=== PATIENT | female | born 1995 | race Caucasian/White ===

== ENCOUNTER → 2017-07-01 | Outpatient (CLI) | payer OTHER ==
--- NOTE | 2017-07-01 12:10 | USB ---
Reason for exam: clinical finding. Indicated problem(s): palpable abnormality in both breasts. Physical Findings: Nurse Summary: all soft, nodular, movable, prominant bilateral nodularity, most prominant 11 o'clock (nurse ts). US Breast BILAT Right breast ultrasound includes all four quadrants, the retroareolar region and axilla. Finding demonstrates a 1.1 x 0.6 x 0.4cm oval, hypoechoic lesion at 10:30 and a 1.6 x 1.2 x 1.0cm oval, hypoechoic lesion at 11 o'clock. Left breast ultrasound includes all four quadrants, the retroareolar region and axilla. Finding demonstrates no cystic or solid lesion seen. These results were verbally communicated with the patient and result sheet given to the patient on 07/01/17. ASSESSMENT: Suspicious, BI-RAD 4 RECOMMENDATION: Ultrasound core biopsy of the right breast. Called with mammographic findings and has scheduled an appointment for the patient for 07/16/17 at 9:[address] Deal. Biopsy scheduled for 07/11/17 at 8:00. PRELIMINARY REPORT CALLED AND FAXED TO DR. DEAL ON 07/01/17 /TP.
== END | disposition home or self-care (01) ==
LOC: RADUSWWP 10:09
PROVIDERS: ATTEND Surgery
DX: R92.8 Other abnormal and inconclusive findings on diagnostic imaging of breast (principal)

== ENCOUNTER 2017-07-11 07:04 | Day surgery (SDC) | payer OTHER ==
[2017-07-11 07:33] VITALS: TEMP 97; BMI 25.7
--- NOTE | 2017-07-11 09:13 | USB ---
EXAMINATION TYPE: US biopsy breast VAD RT DATE OF EXAM: 07/11/2017 CLINICAL HISTORY: 21 year-old female with palpable abnormality right breast. TECHNIQUE: Ultrasound guided core biopsy of the right breast. COMPARISON: 07/01/2017 FINDINGS: Initial scanning redemonstrated the deep 1.4 x 1.0 x 1.6 cm lobulated mass at the 11:00 position. The second questioned area measuring 1.1 x 0.3 x 0.8 cm just adjacent at 10:30 shows contiguity with additional areas of fibroglandular tissue during real- time scanning and does not have a suspicious appearance. The 11:00 lesion is targeted for biopsy. The procedure of ultrasound guided core biopsy was explained to the patient. Benefits, alternatives, and risks were discussed. An informed consent was then obtained. The patient was placed in supine positioning for imaging and for the procedure. The overlying skin was prepped and draped in usual sterile fashion. Lidocaine was used as anesthetic into the skin and subcutaneous tissue up to area of concern in the right breast. Under ultrasound guidance, a 13-gauge vacuum-assisted mammotome Elite biopsy gun device was used to obtain 5 core samples. Following this, a ribbon clip was left in lesion. The patient tolerated the procedure well without any immediate complication. The patient was kept in the radiology department for short stay after the procedure and then discharged home in stable condition. Post procedure mammogram was not performed given the patient's age. IMPRESSION: 1. Successful, uncomplicated ultrasound guided core biopsy of palpable, deep 11: 00 right breast lesion. Full pathology results to follow. 2. During real-time scanning, the adjacent 10:30 lesion was contiguous with additional fibroglandular tissue and was not suspicious. Pathology Results: Benign BREAST, RIGHT, ELEVEN O'CLOCK, CORE BIOPSY: FIBROADENOMA. BACKGROUND FIBROCYSTIC CHANGES INCLUDING FIBROSIS AND SMALL CYSTS. Recommendation Follow up ultrasound of the right breast in 6 months. DANIELD
[2017-07-11 09:26] VITALS: BP 101/67; PULSE 78; RESP 16
== END 2017-07-11 09:00 | disposition home or self-care (01) ==
LOC: RADUSWWP 07:04
PROVIDERS: ATTEND Surgery
DX: D24.1 Benign neoplasm of right breast (principal); N60.11 Diffuse cystic mastopathy of right breast
CPT/HCPCS: 88305; 19083; J2001

== ENCOUNTER → 2018-07-29 | Outpatient (CLI) | payer OTHER ==
[2018-07-29 17:22] LABS: HCT 37.5 % (34.0-46.0); HGB 12.5 gm/dL (11.4-16.0); MCH 27.8 pg (25.0-35.0); MCHC 33.4 g/dL (31.0-37.0); MCV 83.2 fL (80.0-100.0); Mean Platelet Volume 7.1; Platelet Count 270 k/uL (150-450); RDW 12.2 % (11.5-15.5); WBC 6.1 k/uL (3.8-10.6)
[2018-07-29 17:37] LABS: Glucose 78 mg/dL (74-99)
[2018-07-30 05:32] LABS: HIV 1 AB Non-Reactive (Non-Reactive); HIV AB P24 Non-Reactive (Non-Reactive); HIV P24 AG Non-Reactive (Non-Reactive)
[2018-07-30 06:20] LABS: Toxoplasma Antibody (IgG) <3.0 IU/mL (<7.2); Toxoplasma Antibody (IgM) <3.0 AU/mL (<8.0)
--- NOTE | 2018-07-30 07:38 | US ---
EXAMINATION TYPE: Transabdominal DATE OF EXAM: 02/25/18 COMPARISON: NONE CLINICAL HISTORY: 22-year-old female Z36 Confirm dates. EXAM PERFORMED: Transabdominal (TA) FINDINGS: EXAM MEASUREMENTS: GESTATIONAL AGE / DATING Physician Established: Not yet established Dates by LMP: (7 weeks/6 days) EDC: 03/11/2019 Dates by First Scan: No previous this is first scan Dates by Current Scan for: ( 9 weeks/2 days) EDC: 03/01/2019 MATERNAL ANATOMY Uterus: 11.1 x 6.3 x 7.3 cm Right Ovary: 2.1 x 2.4 x 2.6 cm Left Ovary: 2.5 x 2.2 x 2.0 cm Post CDS / Adnexa: wnl Presence of free fluid: none GESTATION / SURVEY CRL: 2.4 cm (9 weeks/2 days) Yolk Sac (normal less than 6mm): 0.4 cm Heart Rate: 153 bpm Rhythm: Normal IUP: Viable IUP Date of LMP: 06/04/2018 Viable IUP at 9 weeks 2 days. IMPRESSION: 1. Single live intrauterine with estimated gestational age of 7 weeks 6 days by LMP. Curren t ultrasound biometry is larger (9 weeks 2 days). Correlate as to accuracy of recall of LMP. 2. Complete survey recommended at 18-20 weeks.
== END | disposition home or self-care (01) ==
LOC: RADUSWWP 16:27
PROVIDERS: ATTEND Obstetrics & Gynecology
DX: Z36.9 Encounter for antenatal screening, unspecified (principal); Z34.81 Encounter for supervision of other normal pregnancy, first trimester; Z3A.01 Less than 8 weeks gestation of pregnancy
CPT/HCPCS: 76801; 82565; 82947; 85027; 86762; 86777; 86778; 86780; 86850; 86900; 86901; 87340; 87390

== ENCOUNTER → 2018-12-02 | Outpatient (CLI) | payer OTHER ==
[2018-12-02 17:39] LABS: HCT 34.3 % (34.0-46.0); HGB 11.4 gm/dL (11.4-16.0); MCH 29.1 pg (25.0-35.0); MCHC 33.3 g/dL (31.0-37.0); MCV 87.4 fL (80.0-100.0); Mean Platelet Volume 7.3; Platelet Count 258 k/uL (150-450); RBC 3.93 m/uL (3.80-5.40); RDW 13.3 % (11.5-15.5); WBC 9.2 k/uL (3.8-10.6)
== END | disposition home or self-care (01) ==
LOC: LABWHC1 15:40
PROVIDERS: ATTEND Obstetrics & Gynecology
DX: Z34.82 Encounter for supervision of other normal pregnancy, second trimester (principal)
CPT/HCPCS: 36415; 82950; 85027

== ENCOUNTER 2019-02-05 10:41 | Outpatient (CLI) | payer OTHER ==
[2019-02-05 11:06] VITALS: BP 109/60; PULSE 73; RESP 16; TEMP 96.1
--- NOTE | 2019-02-05 13:26 | P.MSEPDOC ---
Presenting Problems - Arrival Data Date of Arrival on Unit: 02/05/19 Time of Arrival on Unit: 10:41 Mode of Transport: Ambulatory - Complaint OB-Reason for Admission/Chief Complaint: Possible Onset of Labor Comment: contractions since 299 Medical History - Information : 2 Para: 1 Term: 1 : 0 Abortions: Spontaneous or Elective: 0 Number of Living Children: 1 - Gestational Age Gestational Age by ARAM (wks/days): 36 Weeks and 4 Days Review of Systems - Review of Systems Constitutional: No problems Breast: No problems ENT: No problems Cardiovascular: No problems Respiratory: No problems Gastrointestinal: No problems Genitourinary: No problems Musculoskeletal: No problems Neurological: No problems Skin: No problems Vital Signs - Temperature Temperature: 96.1 F Temperature Source: Temporal Artery Scan - Pulse Left Brachial Pulse Rate: 73 Pulse Assessment Method: Automatic Cuff - Respirations Respiratory Rate: 16 Oxygen Delivery Method: Room Air O2 Sat by Pulse Oximetry: 99 - Blood Pressure Left Arm Blood Pressure: 109/60 Blood Pressure Mean: 76 Blood Pressure Source: Automatic Cuff Medical Screen Scoring (Pre) - Cervical Exam Dilation: 1-3 cm = 1 Membranes: Intact - Uterine Contractions Frequency: > or = 36 weeks =2 Duration: > 40 seconds = 2 Intensity: N/A - Maternal Vital Signs Maternal Temperature: N/A Maternal Blood Pressure: N/A Signs of Preeclampsia: N/A Maternal Respirations: N/A - Pain Assessment Pain Location and Character: Abdomen Pain Scale Used: Numeric (1 - 10) Pain Intensity: 5 Pain Description: *Acute, Tightness Pain Frequency: Intermittent Pain Duration: 6 Pain Duration Units: Hours Pain Behavior: None Exhibited Pain Aggravating Factors: Contractions Non-Pharmacological Interventions: Reduce Environmental Stimuli, Relaxation Technique - Assessment Baseline FHR: 125 Heart Rate - NICHD Category: Category I (Normal) = 0 NST: Reactive Position: N/A Station: N/A - Total Score Total Score (Pre): 5 - Level of Risk Level of Risk: Low (0-5) Disposition - Disposition OB Disposition: Triage I agree with the RN Medical Screening Exam: Yes Risk & Benefit of care provided described in d/c instruction: Yes Diagnosis: FALSE LABOR AT OR AFTER 37 COMPLETED WEEKS OF GESTATION
== END 2019-02-05 12:13 | disposition home or self-care (01) ==
LOC: FBPOP 10:41
PROVIDERS: ATTEND Obstetrics & Gynecology
DX: O47.1 False labor at or after 37 completed weeks of gestation (principal); Z3A.36 36 weeks gestation of pregnancy
CPT/HCPCS: 59025; G0463; 99213

== ENCOUNTER 2019-02-05 22:05 | Inpatient (IN) | payer OTHER ==
[2019-02-05] MEDS ORDERED: METHYLERGONOVINE 0.2 MG/ML 1 ML AMP IM PRN (22:47)
[2019-02-05] MEDS ORDERED: OXYTOCIN 10 UNIT/ML 1 ML VIAL IM PRN (22:47)
[2019-02-05] MEDS ORDERED: CARBOPROST TROMETHAMINE 250 MCG/ML 1 ML AMP IM PRN (22:47)
[2019-02-05] MEDS ORDERED: TERBUTALINE 1 MG/ML VIAL SQ PRN (22:47)
[2019-02-05] MEDS ORDERED: LIDOCAINE 0.5% (PF) 5 MG/ML (50 ML SDV) SQ PRN (22:47)
[2019-02-05] MEDS ORDERED: AMPICILLIN 2,000 MG in SODIUM CHLORIDE 0.9% 100 ML IVPB STA (22:47)
[2019-02-05] MEDS ORDERED: BUTORPHANOL 1 MG/ML 1 ML VIAL IV PRN (22:49)
[2019-02-05] MEDS ORDERED: OXYTOCIN 30 UNITS/500 ML NS 30 UNIT in SALINE 1 500ML.BAG IV SCH (23:00)
[2019-02-05] MEDS: LACTATED RINGERS 1,000 ML IV SCH (23:12)
[2019-02-05 23:15] LABS: Basophils % (A) 0 %; Eosinophils # (A) 0.1 k/uL (0-0.7); Eosinophils % (A) 2 %; HCT 33.8 % (34.0-46.0); HGB 11.2 gm/dL (11.4-16.0); Lymphocytes % (A) 24 %; MCH 27.1 pg (25.0-35.0); Mean Platelet Volume 7.8; Monocytes # (A) 0.5 k/uL (0-1.0); Monocytes % (A) 6 %; Neutrophils # (A) 5.7 k/uL (1.3-7.7); Neutrophils % (A) 67 %; Platelet Count 237 k/uL (150-450); RBC 4.12 m/uL (3.80-5.40); RDW 13.6 % (11.5-15.5); WBC 8.5 k/uL (3.8-10.6)
[2019-02-05 23:18] LABS: MCV 82.1 fL (80.0-100.0)
[2019-02-05 23:21] VITALS: BMI 27.5
[2019-02-06] MEDS: AMPICILLIN 1,000 MG in SODIUM CHLORIDE 0.9% 50 ML IVPB SCH ×3 (05:00→21:10)
[2019-02-06] MEDS: LACTATED RINGERS 1,000 ML IV SCH ×2 (07:12→09:09)
--- NOTE | 2019-02-06 07:38 | P.HPOB ---
History of Present Illness H&P Date: 02/06/19 Chief Complaint: Leaking of fluid. This patient is a pleasant 23-year-old 2 para 1 female estimated date of confinement 03/01/2019 estimated gestational age 36-5/7 weeks who presents to labor and delivery with complaints of leaking of fluid that she believes happened at 5:00 last evening. Patient was admitted by Dr. Samayoa and had a positive amnio sure. Patient is given antibiotics for positive group B strep culture and placed on Pitocin for augmentation. care has been uncomplicated otherwise. Review of Systems Gastrointestinal: Reports diarrhea, Reports heartburn Genitourinary: Reports Menstruation: Reports amenorrhea Past Medical History Past Medical History: No Reported History History of Any Multi-Drug Resistant Organisms: MRSA Date of last positivie culture/infection: right armpit 2013 MDRO Source:: right side arm pit and right hip Past Surgical History: No Surgical Hx Reported Past Anesthesia/Blood Transfusion Reactions: No Reported Reaction Past Psychological History: No Psychological Hx Reported Smoking Status: Never smoker Past Alcohol Use History: None Reported Past Drug Use History: None Reported - Past Family History Mother Family Medical History: No Reported History Medications and Allergies Home Medications Medication Instructions Recorded Confirmed Type No Known Home Medications 07/01/17 02/05/19 History Allergies Allergy/AdvReac Type Severity Reaction Status Date / Time No Known Allergies Allergy Verified 02/05/19 22:12 Exam Vital Signs Temp Pulse Resp BP Pulse Ox 02/05/19 23:13 97.0 F L 95 16 108/72 98 02/05/19 23:05 97.0 F L 95 16 108/72 98 Intake and Output 02/05/19 02/06/19 02/06/19 22:59 06:59 14:59 Other: # Voids 4 Weight 72.756 kg - OBG Physical Exam Abdomen: bowel sounds normal, no diffuse tenderness, no bruit present, no guarding noted, no hepatomegaly, no splenomegaly, no mass Vulva: both: normal Vagina: normal moisture, no discharge Cervix: Cervix is 2 cm dilated 50% effaced. Uterus: enlarged Results blood work shows she is oh positive, rubella immune, RPR nonreactive, hepatitis B negative, HIV is nonreactive, Glucola was normal, group B strep was positive, most recent ultrasound showed baby to be vertex 6 lbs. 6 oz. at the 50th percentile Result Diagrams: 02/05/19 23:00 Abnormal Lab Results - Last 24 Hours (Table) 02/05/19 Range/Units 23:00 Hgb 11.2 L (11.4-16.0) gm/dL Hct 33.8 L (34.0-46.0) % Assessment and Plan Assessment: This is a pleasant 23-year-old 2 para 1 female 36-5/7 weeks' gestation with premature rupture membranes. Patient also has a positive group B strep culture. Plan at this time is to continue IV antibiotics and Pitocin augmentation/induction of labor. I did rupture her for a significant amount of clear fluid. At this point we anticipate vaginal delivery. (1) 36 to 37 weeks gestation of Current Visit: Yes Status: Acute Code(s): [id number] - SNOMED Code(s): 567400150 (2) PROM (premature rupture of membranes) Current Visit: Yes Status: Acute Code(s): O42.90 - ANDRES ROM, 7TH0 BETW RUPT & ONST LABR, UNSP WEEKS OF GEST SNOMED Code(s): 74562029 (3) Group B streptococcal carriage complicating Current Visit: Yes Status: Acute Code(s): O99.820 - STREPTOCOCCUS B CARRIER STATE COMPLICATING SNOMED Code(s): 550207759855638
[2019-02-06] MEDS ORDERED: fentaNYL (PF) 50 MCG/ML 5 ML AMP ONE (08:43)
[2019-02-06] MEDS ORDERED: SODIUM CHLORIDE 0.9% 100 ML BAG ONE (08:43)
[2019-02-06] MEDS ORDERED: ROPIVACAINE 5MG/ML 20ML VIAL ONE (08:43)
[2019-02-06] MEDS ORDERED: WITCH HAZEL 1 EACH MED..PAD TOPICAL PRN (11:25)
[2019-02-06] MEDS ORDERED: BENZOCAINE/MENTHOL SPRAY 1 GM/SPRAY AEROSOL TOPICAL PRN (11:25)
[2019-02-06] MEDS ORDERED: LANOLIN CREAM 5 GM TUBE TOPICAL PRN (11:25)
[2019-02-06] MEDS ORDERED: diphenhydrAMINE 50 MG/ML 1 ML VIAL IVP PRN (11:25)
[2019-02-06] MEDS ORDERED: BISACODYL 10 MG SUPP RECTAL PRN (11:25)
[2019-02-06] MEDS ORDERED: ZOLPIDEM 5 MG TAB PO PRN (11:25)
[2019-02-06] MEDS ORDERED: diphenhydrAMINE 25 MG CAP PO PRN (11:25)
[2019-02-06] MEDS ORDERED: HYDROCORTISONE 2.5% RECTAL CREAM 30 GM TUBE RECTAL PRN (11:25)
[2019-02-06] MEDS ORDERED: OXYTOCIN 20 UNITS/1000 ML NS 1,000 ML IV SCH (11:30)
[2019-02-06] MEDS: IBUPROFEN 600 MG TAB PO PRN ×2 (11:38→17:45)
--- NOTE | 2019-02-06 12:13 | P.PROBDLV ---
Vaginal Delivery Note - . Vaginal Delivery Note: Normal spontaneous vaginal delivery viable male infant Apgars 9 and 9 delivery time is 1111 hours. Please see dictated H&P for intimate details of this patient's admission. Brief summary this is a 23-year-old 2 para 1 female 36-4/7 weeks who is admitted to labor and delivery with premature rupture of membranes at 5:00 last evening. Patient is placed on IV antibiotics secondary to positive group B strep culture. heart tones are category 1. Patient's labor is augmented/induced with Pitocin per protocol. Patient does get an epidural for pain control. She progresses quickly this morning and gets to complete. Patient does have some bradycardia to the 80s and 90s at this time she is encouraged to push. The proximally 3 pushes she pushes the head over the intact perineum. Mouth and nares are bulb suctioned. She has a nuchal cord 1 which is easily reduced. Infant is in late on the mother's abdomen the umbilical cord is allowed to finish pulsating is then doubly clamped and cut. This is a vigorous viable male infant Apgars 9 and 9 delivery time is 1111 hours. After delivery of the infant the placenta spontaneously delivered intact. Estimated blood loss is 100 mL. There is a small first-degree laceration is repaired with 3-0 Vicryl in the usual fashion excellent reapproximation is noted.
[2019-02-06] MEDS: ACETAMINOPHEN TAB 325 MG TAB PO PRN (20:02)
[2019-02-06] MEDS: SENNOSIDES-DOCUSATE SODIUM 1 EACH TAB PO SCH (21:08)
[2019-02-07] MEDS: IBUPROFEN 600 MG TAB PO PRN ×3 (03:55→16:23)
--- NOTE | 2019-02-07 07:13 | P.PNOBGVD ---
Subjective - Subjective Patient reports: Reports appetite normal, Reports voiding normally, Reports pain well controlled, Reports ambulating normally : doing well, in NICU Objective - Latest Vital Signs Latest vital signs: Vital Signs Temp Pulse Resp BP Pulse Ox 02/07/19 00:00 98.2 F 72 16 107/63 02/06/19 20:00 98.1 F 92 16 114/73 02/06/19 15:39 97.4 F L 101 H 18 102/65 97 02/06/19 13:25 96.9 F L 109 H 18 110/59 02/06/19 12:55 77 106/62 02/06/19 12:25 97.3 F L 73 18 105/66 02/06/19 12:10 98.0 F 86 18 109/56 02/06/19 11:55 97.6 F 91 18 115/58 02/06/19 11:40 98.0 F 85 18 110/65 02/06/19 11:25 97.6 F 91 18 105/54 Intake and Output 02/06/19 02/07/19 02/07/19 22:59 06:59 14:59 Other: # Voids 1 1 - Exam Lungs: bilateral: normal Chest: Normal S1, Normal S2 Extremities: Present: normal Abdomen: Present: normal appearance, soft Uterus: Present: normal, firm Assessment and Plan Assessment: day #1. Patient is resting without complaints. Vital signs are stable and she is afebrile. Uterus is firm nontender and she is having normal lochia. Plan today is to continue routine care and discharge home tomorrow. (1) 36 to 37 weeks gestation of Current Visit: Yes Status: Acute Code(s): RMK7500 - SNOMED Code(s): 958285840 (2) PROM (premature rupture of membranes) Current Visit: Yes Status: Acute Code(s): O42.90 - ANDRES ROM, 7TH0 BETW RUPT & ONST LABR, UNSP WEEKS OF GEST SNOMED Code(s): 92167701 (3) Group B streptococcal carriage complicating Current Visit: Yes Status: Acute Code(s): O99.820 - STREPTOCOCCUS B CARRIER STATE COMPLICATING SNOMED Code(s): 854209042163184
[2019-02-07] MEDS: ACETAMINOPHEN TAB 325 MG TAB PO PRN ×3 (08:00→21:07)
[2019-02-07] MEDS: SIMETHICONE 80 MG CHEWABLE PO PRN ×3 (08:02→21:07)
[2019-02-07] MEDS: SENNOSIDES-DOCUSATE SODIUM 1 EACH TAB PO SCH ×2 (10:29→21:08)
[2019-02-08] MEDS: IBUPROFEN 600 MG TAB PO PRN ×3 (00:09→13:37)
--- NOTE | 2019-02-08 07:03 | P.PNOBGVD ---
Subjective - Subjective Patient reports: Reports appetite normal, Reports voiding normally, Reports pain well controlled, Reports ambulating normally : doing well Objective - Latest Vital Signs Latest vital signs: Vital Signs Temp Pulse Resp BP 02/07/19 23:24 97.6 F 83 16 110/57 02/07/19 16:00 97.3 F L 85 15 105/57 02/07/19 08:00 98 F 103 H 15 116/77 - Exam Lungs: bilateral: normal Chest: Normal S1, Normal S2 Extremities: Present: normal Abdomen: Present: normal appearance, soft Uterus: Present: normal, firm Assessment and Plan Assessment: day #2. Patient is resting without complaints. Vital signs are stable she's afebrile. Uterus is firm nontender she's having normal lochia. My impression this is a normal course. Plan is to continue routine care discharge home later today. (1) 36 to 37 weeks gestation of Current Visit: Yes Status: Acute Code(s): [id number] - SNOMED Code(s): 623983408 (2) PROM (premature rupture of membranes) Current Visit: Yes Status: Acute Code(s): O42.90 - ANDRES ROM, 7TH0 BETW RUPT & ONST LABR, UNSP WEEKS OF GEST SNOMED Code(s): 09666298 (3) Group B streptococcal carriage complicating Current Visit: Yes Status: Acute Code(s): O99.820 - STREPTOCOCCUS B CARRIER STATE COMPLICATING SNOMED Code(s): 538894932493840
--- NOTE | 2019-02-08 07:20 | P.DS ---
Providers Date of admission: 02/05/19 22:47 Expected date of discharge: 02/08/19 Attending physician: Manuel Chapin Primary care physician: Stated None - Discharge Diagnosis(es) (1) 36 to 37 weeks gestation of Current Visit: Yes Status: Acute (2) PROM (premature rupture of membranes) Current Visit: Yes Status: Acute (3) Group B streptococcal carriage complicating Current Visit: Yes Status: Acute Hospital Course: Please see dictated H&P for intimate details of this patient's admission. Brief summary this is a 23-year-old 2 para 1 female 36-3/7 weeks gestation admitted to labor and delivery with spontaneous rupture membranes patient goes on to have a vaginal delivery viable male infant. Please see dictated delivery note. or 2 patient's felt be stable for discharge home follow up with me in 6 weeks Procedures: Normal vaginal delivery. Patient Condition at Discharge: Good Plan - Discharge Summary New Discharge Prescriptions: New Ibuprofen [Motrin] 600 mg PO Q6HR PRN #40 tab PRN Reason: Mild Pain Or Fever >= 100.5 Discharge Medication List Ibuprofen [Motrin] 600 mg PO Q6HR PRN #40 tab 02/08/19 [Rx] Follow up Appointment(s)/Referral(s): Manuel Chapin MD [STAFF PHYSICIAN] - 03/19/19 10:45 am Patient Instructions/Handouts: Vaginal Delivery (DC) Activity/Diet/Wound Care/Special Instructions: No intercourse or anything per vagina for 6 weeks. Please call if any fever, chills, excessive vaginal bleeding, and/or abdominal pain. Discharge Disposition: HOME SELF-CARE
[2019-02-08] MEDS: SIMETHICONE 80 MG CHEWABLE PO PRN (08:19)
[2019-02-08] MEDS: SENNOSIDES-DOCUSATE SODIUM 1 EACH TAB PO SCH (08:23)
[2019-02-08 08:24] VITALS: RESP 15
[2019-02-08 15:41] VITALS: BP 106/60; PULSE 71; TEMP 97.9
[2019-02-08] MEDS: ACETAMINOPHEN TAB 325 MG TAB PO PRN (17:13)
== END 2019-02-08 18:14 | disposition home or self-care (01) | DRG 807 ==
LOC: FBPOP 22:05 → 4FBP 22:47
PROVIDERS: ADMIT Obstetrics & Gynecology; ATTEND Obstetrics & Gynecology
PROC: 10E0XZZ Delivery of Products of Conception, External Approach (ICD-10-PCS; principal; 2019-02-06)
PROC: 0HQ9XZZ Repair Perineum Skin, External Approach (ICD-10-PCS; 2019-02-06)
PROC: 00HU33Z Insertion of Infusion Device into Spinal Canal, Percutaneous Approach (ICD-10-PCS; 2019-02-06)
PROC: 3E0R3BZ Introduction of Anesthetic Agent into Spinal Canal, Percutaneous Approach (ICD-10-PCS; 2019-02-06)
DX: O42.919 Preterm premature rupture of membranes, unspecified as to length of time between rupture and onset of labor, unspecified trimester (principal); R00.1 Bradycardia, unspecified; O69.81X0 Labor and delivery complicated by cord around neck, without compression, not applicable or unspecified; O70.0 First degree perineal laceration during delivery; O99.824 Streptococcus B carrier state complicating childbirth; O99.89 Other specified diseases and conditions complicating pregnancy, childbirth and the puerperium; Z37.0 Single live birth; Z3A.36 36 weeks gestation of pregnancy; Z86.14 Personal history of Methicillin resistant Staphylococcus aureus infection
CPT/HCPCS: 59025; 84112; 85025; 86850; 86900; 86901; 99213

== ENCOUNTER → 2019-08-05 | Outpatient (CLI) | payer OTHER ==
[2019-08-05 16:37] LABS: HCT 38.4 % (34.0-46.0); HGB 13.3 gm/dL (11.4-16.0); MCH 29.3 pg (25.0-35.0); MCHC 34.6 g/dL (31.0-37.0); MCV 84.7 fL (80.0-100.0); Mean Platelet Volume 6.5; Platelet Count 306 k/uL (150-450); RBC 4.53 m/uL (3.80-5.40); RDW 12.6 % (11.5-15.5); WBC 7.3 k/uL (3.8-10.6)
[2019-08-05 16:48] LABS: African American GFR (CKD) >90 (>60 ml/min/1.73 sqM); Glucose 81 mg/dL (74-99)
[2019-08-05 23:42] LABS: HIV 1 AB Non-Reactive (Non-Reactive); HIV AB P24 Non-Reactive (Non-Reactive); HIV P24 AG Non-Reactive (Non-Reactive)
--- NOTE | 2019-08-06 07:35 | US ---
EXAMINATION TYPE: Transabdominal DATE OF EXAM: 08/05/2019 4:14 PM COMPARISON: Prior ultrasound one week ago CLINICAL HISTORY: Z36 CONFIRM DATES. Confirm Dates EXAM PERFORMED: Transabdominal (TA) EXAM MEASUREMENTS: GESTATIONAL AGE / DATING Physician Established: (12 weeks/5 days) EDC: 02/12/2020 Dates by LMP: (12 weeks/5 days) EDC: 02/12/2020 Dates by First Scan: No prior Dates by Current Scan for: (10 weeks/2 days) EDC: 02/29/2020 MATERNAL ANATOMY Uterus: 10.9 x 6.5 x 7.2 cm Right Ovary: 2.7 x 1.9 x 2.0 cm Left Ovary: 2.1 x 1.9 x 1.4 cm Post CDS / Adnexa: wnl Presence of free fluid: No Presence of subchorionic bleed: No GESTATION / SURVEY CRL: 3.3 cm (10 weeks/2 days) MSD: wnl Heart Rate: 163 bpm Rhythm: Normal IUP: Viable IUP Date of LMP: 05/08/2019 Single live intrauterine gestation is redemonstrated. Yolk sac not clearly seen on current study. No free fluid in pelvic cul-de-sac. Both ovaries are seen. No suspicious extra ovarian adnexal masses. IMPRESSION: Single live intrauterine gestation is seen, mean crown-rump length is 3.3 cm correspondin g to 10 week 2 day old fetus. Satisfactory interval progression from prior study noted.
== END ==
LOC: RADUSWWP 15:36
PROVIDERS: ATTEND Obstetrics & Gynecology
DX: Z36.89 Encounter for other specified antenatal screening (principal); Z34.81 Encounter for supervision of other normal pregnancy, first trimester; Z3A.10 10 weeks gestation of pregnancy
CPT/HCPCS: 36415; 76801; 82565; 82947; 85027; 86762; 86780; 86850; 86900; 86901; 87340; 87390

== ENCOUNTER 2019-12-25 19:04 | Outpatient (CLI) | payer OTHER ==
[2019-12-26 00:17] VITALS: BP 111/63; PULSE 101; RESP 16; TEMP 96
--- NOTE | 2019-12-30 08:19 | P.MSEPDOC ---
Presenting Problems - Arrival Data Date of Arrival on Unit: 12/25/19 Time of Arrival on Unit: 19:04 Mode of Transport: Ambulatory - Complaint OB-Reason for Admission/Chief Complaint: Vaginal Bleeding Comment: pt states passed small, dime sized, blood clot this AM and has been having fausto starkey contx irregulary throughout day. Medical History - Information : 3 Para: 2 Term: 1 : 1 Abortions: Spontaneous or Elective: 0 Number of Living Children: 2 - Gestational Age Gestational Age by ARAM (wks/days): 30 Weeks and 5 Days - History Complications: Prior Review of Systems - Review of Systems Constitutional: No problems Breast: No problems ENT: No problems Cardiovascular: No problems Respiratory: No problems Gastrointestinal: No problems Genitourinary: No problems Musculoskeletal: No problems Neurological: No problems Skin: No problems Vital Signs - Temperature Temperature: 96.0 F Temperature Source: Temporal Artery Scan - Pulse Right Sitting Brachial Pulse Rate: 101 Pulse Assessment Method: Automatic Cuff - Respirations Respiratory Rate: 16 Oxygen Delivery Method: Room Air - Blood Pressure Right Arm Sitting Blood Pressure: 111/63 Blood Pressure Mean: 79 Blood Pressure Source: Automatic Cuff Medical Screen Scoring (Pre) - Cervical Exam Dilation: 0 cm = 0 Membranes: Intact - Uterine Contractions Frequency: > 5 minutes apart = 1 Duration: N/A Intensity: N/A - Maternal Vital Signs Maternal Temperature: N/A Maternal Blood Pressure: N/A Signs of Preeclampsia: N/A Maternal Respirations: N/A - Maternal Trauma Maternal Trauma: N/A - Assessment - Baby A Baseline FHR: 140 Heart Rate - NICHD Category: Category I (Normal) = 0 NST: Reactive Position: N/A Station: N/A - Total Score - Baby A Total Score - Baby A: 1 - Total Score - Baby B Total Score - Baby B: 1 - Total Score - Baby C Total Score - Baby C: 1 - Level of Risk - Baby A Level of Risk - Baby A: Low (0-5) - Level of Risk - Baby B Level of Risk - Baby B: Low (0-5) - Level of Risk - Baby C Level of Risk - Baby C: Low (0-5) Physician Notification (Pre) - Physician Notified Physician Notified Date: 12/25/19 Physician Notified Time: 21:00 New Order Received: Yes - Notification Comment Comment: D/C HOME Disposition - Disposition OB Disposition: Discharge to home Discharge Date: 12/25/19 Discharge Time: 21:05 I agree with the RN Medical Screening Exam: Yes Risk & Benefit of care provided described in d/c instruction: Yes Diagnosis: SPOTTING COMPLICATING , THIRD TRIMESTER
== END 2019-12-25 21:05 | disposition home or self-care (01) ==
LOC: FBPOP 19:04
PROVIDERS: ATTEND Obstetrics & Gynecology
DX: O26.853 Spotting complicating pregnancy, third trimester (principal); Z3A.30 30 weeks gestation of pregnancy
CPT/HCPCS: 59025; 99213

== ENCOUNTER 2020-02-19 06:39 | Outpatient (CLI) | payer OTHER ==
[2020-02-19 08:05] VITALS: BP 100/59; PULSE 104; RESP 16
--- NOTE | 2020-02-20 07:21 | P.MSEPDOC ---
Presenting Problems - Arrival Data Date of Arrival on Unit: 02/19/20 Time of Arrival on Unit: 06:39 Mode of Transport: Ambulatory - Complaint OB-Reason for Admission/Chief Complaint: Rule Out SROM Comment: pt reports possible rom at 0330 Medical History - Information : 3 Para: 2 Term: 2 : 0 Abortions: Spontaneous or Elective: 0 Number of Living Children: 2 - Gestational Age Gestational Age by ARAM (wks/days): 38 Weeks and 4 Days Review of Systems - Review of Systems Constitutional: No problems Breast: No problems ENT: No problems Cardiovascular: No problems Respiratory: No problems Gastrointestinal: No problems Genitourinary: No problems Musculoskeletal: No problems Neurological: No problems Skin: No problems Vital Signs - Pulse Right Brachial Pulse Rate: 104 Pulse Assessment Method: Automatic Cuff - Respirations Respiratory Rate: 16 Oxygen Delivery Method: Room Air - Blood Pressure Right Arm Blood Pressure: 100/59 Blood Pressure Mean: 72 Blood Pressure Source: Automatic Cuff Medical Screen Scoring (Pre) - Cervical Exam Dilation: 1-3 cm = 1 Membranes: Intact - Uterine Contractions Duration: > 40 seconds = 2 Intensity: N/A - Maternal Vital Signs Maternal Temperature: N/A Maternal Blood Pressure: N/A Signs of Preeclampsia: N/A Maternal Respirations: N/A - Maternal Trauma Maternal Trauma: N/A - Assessment - Baby A Baseline FHR: 145 Heart Rate - NICHD Category: Category I (Normal) = 0 NST: Reactive Position: N/A Station: N/A - Total Score - Baby A Total Score - Baby A: 3 - Total Score - Baby B Total Score - Baby B: 3 - Total Score - Baby C Total Score - Baby C: 3 - Level of Risk - Baby A Level of Risk - Baby A: Low (0-5) - Level of Risk - Baby B Level of Risk - Baby B: Low (0-5) - Level of Risk - Baby C Level of Risk - Baby C: Low (0-5) Physician Notification (Pre) - Physician Notified Physician Notified Date: 02/19/20 Physician Notified Time: 07:01 New Order Received: No - Notification Comment Comment: dr hernandez in department, at bedside, performs cervical exam, Disposition - Disposition OB Disposition: Triage Discharge Date: 02/19/20 Discharge Time: 07:57 I agree with the RN Medical Screening Exam: Yes Risk & Benefit of care provided described in d/c instruction: Yes Diagnosis: FALSE LABOR AT OR AFTER 37 COMPLETED WEEKS OF GESTATION
== END 2020-02-19 07:57 | disposition home or self-care (01) ==
LOC: FBPOP 06:39
PROVIDERS: ATTEND Obstetrics & Gynecology
DX: O47.1 False labor at or after 37 completed weeks of gestation (principal); Z3A.38 38 weeks gestation of pregnancy
CPT/HCPCS: 59025; 84112; G0463; 99213

== ENCOUNTER 2020-02-22 08:05 | Inpatient (IN) | payer OTHER ==
[2020-02-22] MEDS ORDERED: METHYLERGONOVINE 0.2 MG/ML 1 ML AMP IM PRN (08:34)
[2020-02-22] MEDS ORDERED: AMPICILLIN 2,000 MG in SODIUM CHLORIDE 0.9% 100 ML IVPB STA (08:34)
[2020-02-22] MEDS ORDERED: OXYTOCIN 10 UNIT/ML 1 ML VIAL IM PRN (08:34)
[2020-02-22] MEDS ORDERED: CARBOPROST TROMETHAMINE 250 MCG/ML 1 ML AMP IM PRN (08:34)
[2020-02-22] MEDS ORDERED: TERBUTALINE 1 MG/ML VIAL SQ PRN (08:34)
[2020-02-22] MEDS ORDERED: LIDOCAINE 0.5% (PF) 5 MG/ML (50 ML SDV) SQ PRN (08:34)
--- NOTE | 2020-02-22 08:52 | P.HPOB ---
History of Present Illness H&P Date: 02/22/20 Chief Complaint: Contractions. This patient is a 24-year-old 3 para 2 female estimated date of confinement 02/29/2020 estimated gestational age 39 weeks who presents to labor and delivery with complaints of contractions since 4:00 this morning. Patient's care has been uncomplicated. She does have a history of a positive group B strep with her first , however was negative this . Patient's 4-5 cm dilated thought to be in active labor. Review of Systems Genitourinary: Reports Menstruation: Reports amenorrhea Past Medical History Past Medical History: No Reported History History of Any Multi-Drug Resistant Organisms: MRSA Date of last positivie culture/infection: right armpit 2013 MDRO Source:: right side arm pit and right hip Past Surgical History: No Surgical Hx Reported Past Anesthesia/Blood Transfusion Reactions: No Reported Reaction Past Psychological History: No Psychological Hx Reported Smoking Status: Never smoker Past Alcohol Use History: None Reported Past Drug Use History: None Reported - Past Family History Mother Family Medical History: No Reported History Medications and Allergies Home Medications Medication Instructions Recorded Confirmed Type No Known Home Medications 02/22/20 02/22/20 History Allergies Allergy/AdvReac Type Severity Reaction Status Date / Time No Known Allergies Allergy Verified 02/22/20 08:15 Exam Intake and Output 02/21/20 02/22/20 02/22/20 22:59 06:59 14:59 Other: Weight 80.739 kg - OBG Physical Exam Abdomen: bowel sounds normal, no diffuse tenderness, no bruit present, no guarding noted, no hepatomegaly, no splenomegaly, no mass Vulva: both: normal Vagina: normal moisture, no discharge Cervix: no lesion (Cervix is 4-5 cm per RN.), no discharge Uterus: enlarged (Fundal height is 38 cm) Results blood work shows she is O positive, rubella immune, RPR nonreactive, hepatitis B negative, HIV is nonreactive, Glucola was normal, group B strep was negative, ultrasounds have been normal. Assessment and Plan Assessment: This is a pleasant 24-year-old 3 para 2 female 39 weeks' gestation in active labor. Plan is antibiotic prophylaxis due to history of positive strep with her first and anticipate normal vaginal delivery. (1) 39 weeks gestation of Current Visit: Yes Status: Acute Code(s): Z3A.39 - 39 WEEKS GESTATION OF SNOMED Code(s): 23549924 (2) Normal labor Current Visit: Yes Status: Acute Code(s): O80 - ENCOUNTER FOR FULL-TERM UNCOMPLICATED DELIVERY; Z37.9 - OUTCOME OF DELIVERY, UNSPECIFIED SNOMED Code(s): 54844490
[2020-02-22 09:18] LABS: Basophils % (A) 0 %; Eosinophils # (A) 0.1 k/uL (0-0.7); Eosinophils % (A) 1 %; HCT 34.7 % (34.0-46.0); HGB 11.4 gm/dL (11.4-16.0); Lymphocytes # (A) 1.7 k/uL (1.0-4.8); Lymphocytes % (A) 20 %; MCH 25.8 pg (25.0-35.0); MCHC 32.8 g/dL (31.0-37.0); MCV 78.8 fL (80.0-100.0); Mean Platelet Volume 9.1; Monocytes # (A) 0.4 k/uL (0-1.0); Monocytes % (A) 4 %; Neutrophils # (A) 6.1 k/uL (1.3-7.7); Neutrophils % (A) 72 %; Platelet Count 223 k/uL (150-450); RBC 4.41 m/uL (3.80-5.40); RDW 14.5 % (11.5-15.5); WBC 8.5 k/uL (3.8-10.6)
[2020-02-22] MEDS: LACTATED RINGERS 1,000 ML IV SCH ×2 (09:21→09:54)
[2020-02-22] MEDS ORDERED: ROPIVACAINE 100 MG, fentaNYL (PF) 200 MCG in SODIUM CHLORIDE 0.9% 76 ML EPIDURAL ONE (09:42)
[2020-02-22] MEDS ORDERED: ZOLPIDEM 5 MG TAB PO PRN (11:20)
[2020-02-22] MEDS ORDERED: BENZOCAINE/MENTHOL SPRAY 1 GM/SPRAY AEROSOL TOPICAL PRN (11:20)
[2020-02-22] MEDS ORDERED: HYDROCORTISONE 2.5% RECTAL CREAM 30 GM TUBE RECTAL PRN (11:20)
[2020-02-22] MEDS ORDERED: SIMETHICONE 80 MG CHEWABLE PO PRN (11:20)
[2020-02-22] MEDS ORDERED: OXYTOCIN 20 UNITS/1000 ML NS 1,000 ML IV SCH (11:20)
[2020-02-22] MEDS ORDERED: diphenhydrAMINE 25 MG CAP PO PRN (11:20)
[2020-02-22] MEDS ORDERED: WITCH HAZEL 1 EACH MED..PAD TOPICAL PRN (11:20)
[2020-02-22] MEDS ORDERED: diphenhydrAMINE 50 MG/ML 1 ML VIAL IVP PRN (11:20)
[2020-02-22] MEDS ORDERED: LANOLIN CREAM 5 GM TUBE TOPICAL PRN (11:20)
[2020-02-22] MEDS ORDERED: BISACODYL 10 MG SUPP RECTAL PRN (11:20)
[2020-02-22] MEDS: IBUPROFEN 600 MG TAB PO PRN ×2 (11:43→20:35)
[2020-02-22] MEDS ORDERED: AMPICILLIN 1,000 MG in SODIUM CHLORIDE 0.9% 50 ML IVPB SCH (12:45)
--- NOTE | 2020-02-22 13:46 | P.PROBDLV ---
Vaginal Delivery Note - . Vaginal Delivery Note: Normal spontaneous vaginal delivery of viable female infant Apgars 9,9 at 11:06 hours. Please see dictated H&P for intimate details of this patients admission. In brief summary, this is a pleasant 24 yr female 39 wks gestation admitted to L&D in active labor. On admission is 5 cm dilated and has artificial rupture of membranes at 7 cm. She has a history of GBS (1st ), negative this . I did give her antibiotics prophylactically. She gets an epideral for pain control with good relief. She quickly progresses, gets to complete and pushes the head to the perineum. Posterior perineum is supported and we have controlled delivery of the infants head. Mouth and nares are bulb suctioned. There is no evidence of a nuchal cord. With gentle downward traction, we have spontaneous delivery of the anterior and posterior shoulder and the rest of this infants body. This is a vigorous, viable, female infant Apgars 9,9 at 11:06 hours. has spontaneous respiration and good cry and grossly appears normal. After delivery of the , the umbilical cord is allowed to finish pulsating and is then clamped and cut. It appears to be tri- vascular. The placenta is delivered intact. Inspection of the perineum shows a small 1st degree laceration that is repaired with 3-0 vicryl, good reapproximation is noted. There is also a small nevus on the perineum which is removed. EBL is approximately 300cc. There are no complications. All counts are correct times three. and mother are stable in delivery room.
[2020-02-22] MEDS: SENNOSIDES-DOCUSATE SODIUM 1 EACH TAB PO SCH (20:35)
[2020-02-23] MEDS: ACETAMINOPHEN TAB 325 MG TAB PO PRN ×2 (06:19→12:53)
[2020-02-23] MEDS: IBUPROFEN 600 MG TAB PO PRN (08:03)
[2020-02-23] MEDS: SENNOSIDES-DOCUSATE SODIUM 1 EACH TAB PO SCH (08:03)
[2020-02-23 08:10] VITALS: BP 106/66; PULSE 96; RESP 18; TEMP 98
--- NOTE | 2020-02-23 09:02 | P.DS ---
Providers Date of admission: 02/22/20 08:27 Expected date of discharge: 02/23/20 Attending physician: Manuel Chapin Primary care physician: Stated None Hospital Course: This is a 24-year-old female who presented in active labor. Please see history and physical for details of patient's admission. She delivered vaginally a viable female on 02/22/2020. Her course has been uncomplicated. Lochia is decreasing. She is breast-feeding. Pain is fairly well controlled with ibuprofen and Tylenol. Vital signs are stable. Abdomen is soft with fundus firm and nontender. Extremities show negative Homans. Impression is status post vaginal delivery day #1. Plan is to discharge home today. Routine instructions are given. She is advised to follow up with Dr. Chapin in 6 weeks. She states she has a breast pump at home. She will be given a prescription for ibuprofen. She is advised to call the office if she has any further questions or concerns prior to her appointment time. Procedures: Spontaneous vaginal delivery of a viable female infant on 02/22/2020 Patient Condition at Discharge: Stable Plan - Discharge Summary New Discharge Prescriptions: New Ibuprofen [Motrin] 600 mg PO Q6HR PRN #60 tab PRN Reason: Mild Pain Or Fever >= 100.5 Discharge Medication List Ibuprofen [Motrin] 600 mg PO Q6HR PRN #60 tab 02/23/20 [Rx] Follow up Appointment(s)/Referral(s): Manuel Chapin MD [STAFF PHYSICIAN] - 6 Weeks Activity/Diet/Wound Care/Special Instructions: Instructions 1. Do not begin any exercise program for 3 weeks. 2. Do not resume sexual relations for 3 weeks or longer if uncomfortable. 3. You may take tub baths or showers at any time. 4. You may use tampons if desired after 3 weeks. 5. Keep the area of episiotomy (stitches) clean and dry. 6. If you are not nursing, wear a good fitting, supportive bra during the day and limit fluid intake for at least 1 week to prevent breast engorgement. 7. Call the office, [phone], within the next week to make appointment for your 6 week checkup if it has not already been made. 8. Report any of the following occurrences to the doctor promptly: a. Heavy, excessive bleeding b. Chills, fever c. Burning or frequency of urination d. Pain or redness and breasts if nursing e. Increasing pain or swelling in episiotomy (stitches). In addition to the above instructions, the following additional should be followed: 1. No heavy lifting or straining (exercising) until after 6 week checkup. 2. Keep abdominal incision clean and dry: You may wear a dressing if more comfortable. 3. Make office appointment for 10 days after going home or as instructed by her doctor. Discharge Disposition: HOME SELF-CARE
== END 2020-02-23 13:45 | disposition home or self-care (01) | DRG 807 ==
LOC: FBPOP 08:05 → 4FBP 08:27
PROVIDERS: ADMIT Obstetrics & Gynecology; ATTEND Obstetrics & Gynecology
PROC: 10E0XZZ Delivery of Products of Conception, External Approach (ICD-10-PCS; principal; 2020-02-22)
PROC: 0HQ9XZZ Repair Perineum Skin, External Approach (ICD-10-PCS; principal; 2020-02-22)
DX: O80 Encounter for full-term uncomplicated delivery (principal); Z37.0 Single live birth; O70.0 First degree perineal laceration during delivery; Z3A.39 39 weeks gestation of pregnancy; Z86.19 Personal history of other infectious and parasitic diseases
CPT/HCPCS: 59025; 85025; 86850; 86900; 86901; 99213

== ENCOUNTER → 2021-01-06 | Outpatient (CLI) | payer OTHER ==
--- NOTE | 2021-01-06 12:57 | US ---
EXAMINATION TYPE: Transabdominal DATE OF EXAM: 01/06/2021 12:45 PM COMPARISON: NONE CLINICAL HISTORY: Z36 Confirm dates. EXAM PERFORMED: Transvaginal (TV) and Transabdominal (TA) EXAM MEASUREMENTS: GESTATIONAL AGE / DATING Physician Established: Not yet established Dates by LMP: 11/11/2020 (8 weeks/0 days) EDC: 08/18/2021 Dates by First Scan: No previous this is first scan Dates by Current Scan for: (7 weeks/6 days) EDC: 08/19/2021 MATERNAL ANATOMY Uterus: 11.5 x 5.6 x 5.8 cm Right Ovary: 2.8 x 2.6 x 1.8 cm Left Ovary: 2.1 x 1.8 x 1.6 cm Post CDS / Adnexa: wnl Presence of free fluid: no free fluid Presence of subchorionic bleed: anechoic area adjacent to gestational sac measures 2.1 x 1.3 x 0.9 cm . GESTATION / SURVEY CRL: 1.5 cm (7 weeks/6 days) Yolk Sac (normal less than 6mm): 0.4 cm Heart Rate: 146 bpm Rhythm: Normal IUP: Viable IUP Date of LMP: 11/11/2020 Beta HcG (if available): not available IMPRESSION: Single viable IUP that correlates with LMP.
[2021-01-06 13:15] LABS: HCT 37.4 % (34.0-46.0); HGB 12.7 gm/dL (11.4-16.0); MCH 28.3 pg (25.0-35.0); MCV 83.2 fL (80.0-100.0); Mean Platelet Volume 6.9; Platelet Count 247 k/uL (150-450); RDW 13.2 % (11.5-15.5); WBC 4.6 k/uL (3.8-10.6)
[2021-01-06 13:27] LABS: African American GFR (CKD) >90 (>60 ml/min/1.73 sqM); Glucose 100 mg/dL (74-99); Non-African American GFR(CKD) >90 (>60 ml/min/1.73 sqM)
[2021-01-07 04:23] LABS: Hepatitis B Surface Antigen Non-Reactive (Non-Reactive)
== END | disposition home or self-care (01) ==
LOC: RADUSWWP 12:15
PROVIDERS: ATTEND Obstetrics & Gynecology
DX: Z36.87 Encounter for antenatal screening for uncertain dates (principal)
CPT/HCPCS: 76801; 76817; 82565; 82947; 85027; 86762; 86777; 86778; 86780; 86850; 86900; 86901; 87340

== ENCOUNTER 2021-07-30 11:00 | Outpatient (CLI) | payer OTHER ==
[2021-07-30 12:21] VITALS: BP 122/78; PULSE 104; RESP 16; TEMP 97.2
--- NOTE | 2021-07-31 07:15 | P.MSEPDOC ---
Presenting Problems - Arrival Data Date of Arrival on Unit: 07/30/21 Time of Arrival on Unit: 11:00 Mode of Transport: Ambulatory - Complaint OB-Reason for Admission/Chief Complaint: Possible Onset of Labor, Rule Out SROM Comment: contractions since 0300 6 min apart Medical History - Information : 4 Para: 3 Term: 2 : 1 Abortions: Spontaneous or Elective: 0 Number of Living Children: 3 - Gestational Age Gestational Age by ARAM (wks/days): 37 Weeks and 2 Days - History Complications: Prior Review of Systems - Review of Systems Constitutional: No problems Breast: No problems ENT: No problems Cardiovascular: No problems Respiratory: No problems Gastrointestinal: No problems Genitourinary: No problems Musculoskeletal: No problems Neurological: No problems Skin: No problems Vital Signs - Temperature Temperature: 97.2 F Temperature Source: Temporal Artery Scan - Pulse Right Brachial Pulse Rate: 104 Pulse Assessment Method: Automatic Cuff - Respirations Respiratory Rate: 16 Oxygen Delivery Method: Room Air O2 Sat by Pulse Oximetry: 100 - Blood Pressure Right Arm Blood Pressure: 122/78 Blood Pressure Mean: 92 Blood Pressure Source: Automatic Cuff Medical Screen Scoring - Cervical Exam Dilation (cm): 1 Effacement (%): 0 Station: -1 Membranes: Intact - Uterine Contractions Frequency From (mins): 2 Frequency To (mins): 7 Duration From (seconds): 60 Duration To (seconds): 80 Intensity: Moderate Resting: Soft to palpation - Assessment - Baby A Baseline FHR: 140 Heart Rate - NICHD Category: Category I (Normal) NST: Reactive Physician Notification - Physician Notified Physician Notified Date: 07/30/21 Physician Notified Time: 11:56 Physician: Manuel Chapin New Order Received: Yes (dc) Maternal Triage Index - Maternal Triage Index Presenting for scheduled procedure w/no complaint: No - Stat/Priority 1 Stat Priority 1: No - Urgent/Priority 2 Urgent Priority 2: No - Prompt/Priority 3 Prompt Priority 3: No - Non-Urgent/Priority 4 Non-Urgent Priority 4: Yes Criteria Met for Priority 4: >37 weeks rule out labor/rom Disposition - Disposition OB Disposition: Triage, Discharge to home, Written follow up instructions reviewed Discharge Date: 07/30/21 Discharge Time: 12:07 I agree with the RN Medical Screening Exam: Yes Case reviewed; plan agreed upon as documented in EMR&OBIX.: Yes Diagnosis: FALSE LABOR AT OR AFTER 37 COMPLETED WEEKS OF GESTATION
== END 2021-07-30 12:07 | disposition home or self-care (01) ==
LOC: FBPOP 11:00
PROVIDERS: ATTEND Obstetrics & Gynecology
DX: O47.1 False labor at or after 37 completed weeks of gestation (principal); Z3A.37 37 weeks gestation of pregnancy
CPT/HCPCS: 59025; 84112; G0463; 99213

== ENCOUNTER 2021-08-03 19:05 | Outpatient (CLI) | payer OTHER ==
[2021-08-03 20:13] VITALS: BP 113/59; PULSE 79; RESP 16; TEMP 97.3
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
== END 2021-08-03 20:05 | disposition home or self-care (01) ==
LOC: FBPOP 19:05
PROVIDERS: ATTEND Obstetrics & Gynecology
DX: Z04.3 Encounter for examination and observation following other accident (principal)
CPT/HCPCS: 59025; 84112; G0463; 99213

== ENCOUNTER 2021-08-23 06:00 | Inpatient (IN) | payer OTHER ==
[2021-08-23] MEDS ORDERED: OXYTOCIN 30 UNITS/500 ML NS 30 UNIT in SALINE 1 500ML.BAG IV SCH ×2 (06:07→10:57)
[2021-08-23] MEDS ORDERED: METHYLERGONOVINE 0.2 MG/ML 1 ML AMP IM PRN (06:07)
[2021-08-23] MEDS ORDERED: LIDOCAINE 0.5% (PF) 5 MG/ML (50 ML SDV) SQ PRN (06:07)
[2021-08-23] MEDS ORDERED: CARBOPROST TROMETHAMINE 250 MCG/ML 1 ML AMP IM PRN (06:07)
[2021-08-23] MEDS ORDERED: AMPICILLIN 2,000 MG in SODIUM CHLORIDE 0.9% 100 ML IVPB STA (06:07)
[2021-08-23] MEDS ORDERED: OXYTOCIN 10 UNIT/ML 1 ML VIAL IM PRN (06:07)
[2021-08-23] MEDS ORDERED: TERBUTALINE 1 MG/ML VIAL SQ PRN (06:07)
[2021-08-23 06:19] VITALS: RESP 16
[2021-08-23] MEDS: LACTATED RINGERS 1,000 ML IV SCH ×2 (06:25→08:58)
--- NOTE | 2021-08-23 06:26 | P.HPOB ---
History of Present Illness H&P Date: 08/23/21 Chief Complaint: Postdates, requested induction of labor. This patient is a pleasant 25-year-old 4 para 3 female estimated date of confinement 08/18/2021 estimated gestational age 40-5/7 weeks' who presents to labor and delivery for postdates induction of labor. Patient's care has been uncomplicated. She did have a negative group B strep culture but has a history of a positive culture in the past. Review of Systems Genitourinary: Reports Menstruation: Reports amenorrhea Past Medical History Past Medical History: No Reported History History of Any Multi-Drug Resistant Organisms: MRSA Date of last positivie culture/infection: right armpit 2013 MDRO Source:: right side arm pit and right hip Past Surgical History: No Surgical Hx Reported Additional Past Surgical History / Comment(s): Cyst removed from neck 2019 Past Anesthesia/Blood Transfusion Reactions: No Reported Reaction Past Psychological History: Anxiety, Depression Smoking Status: Never smoker Past Alcohol Use History: None Reported Past Drug Use History: None Reported - Past Family History Mother Family Medical History: No Reported History Father Family Medical History: Cancer Additional Family Medical History / Comment(s): Lung cancer Medications and Allergies Home Medications Medication Instructions Recorded Confirmed Type No Known Home Medications 07/30/21 08/23/21 History Allergies Allergy/AdvReac Type Severity Reaction Status Date / Time No Known Allergies Allergy Verified 08/23/21 06:06 Exam Vital Signs Temp Pulse Resp BP 08/23/21 06:14 96.9 F L 102 H 16 122/70 Intake and Output 08/22/21 08/22/21 08/23/21 14:59 22:59 06:59 Other: Weight 80.739 kg - OBG Physical Exam Abdomen: bowel sounds normal, no diffuse tenderness, no bruit present, no guarding noted, no hepatomegaly, no splenomegaly, no mass Vulva: both: normal Vagina: normal moisture, no discharge Cervix: no lesion (Cervix in the office was 3-4 cm dilated.), no discharge Uterus: enlarged (Fundal height 38 cm) Results blood work shows she is O positive, rubella immune, RPR nonreactive, hepatitis B negative, Glucola was normal, group B strep was negative, ultrasounds have shown normal growth. Assessment and Plan Assessment: This is a pleasant 25-year-old 4 para 3 female 40-5/7 weeks' gestation presents to labor and delivery for postdates induction of labor. Patient has a history of positive group B strep with a previous although she is negative this . Plan is antibiotics and Pitocin induction of labor. Anticipate vaginal delivery. (1) Postmaturity , 40-42 weeks gestation Current Visit: Yes Status: Acute Code(s): O48.0 - POST-TERM SNOMED Code(s): 14838026733973 (2) Elective induction of labor planned Current Visit: Yes Status: Acute Code(s): JXP7190 - SNOMED Code(s): 063354759
[2021-08-23 06:39] LABS: Basophils % (A) 0 %; Eosinophils # (A) 0.1 k/uL (0-0.7); Eosinophils % (A) 2 %; HCT 34.2 % (34.0-46.0); HGB 10.9 gm/dL (11.4-16.0); Lymphocytes # (A) 2.3 k/uL (1.0-4.8); Lymphocytes % (A) 30 %; MCH 26.3 pg (25.0-35.0); MCHC 31.9 g/dL (31.0-37.0); MCV 82.2 fL (80.0-100.0); Mean Platelet Volume 9.6; Monocytes # (A) 0.4 k/uL (0-1.0); Monocytes % (A) 5 %; Neutrophils # (A) 4.6 k/uL (1.3-7.7); Neutrophils % (A) 61 %; Platelet Count 216 k/uL (150-450); RBC 4.15 m/uL (3.80-5.40); RDW 14.8 % (11.5-15.5); WBC 7.5 k/uL (3.8-10.6)
[2021-08-23] MEDS ORDERED: CITRIC ACID-SODIUM CITRATE 15 ML CUP PO ONE (07:55)
[2021-08-23] MEDS ORDERED: AMPICILLIN 1,000 MG in SODIUM CHLORIDE 0.9% 50 ML IVPB SCH (10:00)
[2021-08-23] MEDS ORDERED: LANOLIN CREAM 5 GM TUBE TOPICAL PRN (10:57)
[2021-08-23] MEDS ORDERED: BENZOCAINE/MENTHOL SPRAY 1 GM/SPRAY AEROSOL TOPICAL PRN (10:57)
[2021-08-23] MEDS ORDERED: diphenhydrAMINE 50 MG/ML 1 ML VIAL IVP PRN (10:57)
[2021-08-23] MEDS ORDERED: HYDROCORTISONE 2.5% RECTAL CREAM 30 GM TUBE RECTAL PRN (10:57)
[2021-08-23] MEDS ORDERED: bisacodyL 10 MG SUPP RECTAL PRN (10:57)
[2021-08-23] MEDS ORDERED: SIMETHICONE 80 MG CHEWABLE PO PRN (10:57)
[2021-08-23] MEDS ORDERED: diphenhydrAMINE 25 MG CAP PO PRN (10:57)
[2021-08-23] MEDS ORDERED: ZOLPIDEM 5 MG TAB PO PRN (10:57)
[2021-08-23] MEDS: SENNOSIDES-DOCUSATE SODIUM 1 EACH TAB PO SCH ×2 (12:14→19:46)
--- NOTE | 2021-08-23 13:12 | P.PROBDLV ---
Vaginal Delivery Note - . Vaginal Delivery Note: Normal vaginal delivery viable male infant Apgars 9 and 9 delivery time is 1044 hrs. Please see dictated H&P for intimate details of this patient's admission. Brief summary is a pleasant 25-year-old 4 para 3 female 40-5/7 weeks gestation admitted to labor and delivery for elective postdates induction of labor. On admission patient is 3-4 cm does artificial rupture membranes for clear fluid she is given antibiotics due to a past history of positive strep culture. Labor is induced with Pitocin per protocol. Patient progresses and does get an epidural for pain control. Patient's labor progresses quickly and she gets complete. Patient pushes the head to the perineum the posterior perineum is supported we have controlled delivery of infant's head over the intact perineum. If it has straight occiput anterior presentation. Mouth and nares are bulb suctioned. There is no evidence of a nuchal cord. With gentle downward traction we have delivery the anterior and posterior shoulder and rest this 's body. This is a vigorous viable male infant Apgars 9 and 9 delivery time was 1044 hrs. After delivery of the infant the baby is late on the mother's abdomen. After the cord is then pulsating, is doubly clamped and cut. Does appear to be trivascular. Placenta is then spontaneously delivered intact. Estimated blood loss is about 1 50 mL. There is a small first-degree laceration requires 3-0 Vicryl. Excellent reapproximation is noted. There are no complications. All counts correct 3. Infant and mother stable delivery room.
[2021-08-23] MEDS ORDERED: ROPIVACAINE 100 MG, fentaNYL (PF). 200 MCG in SODIUM CHLORIDE 0.9% 76 ML EPIDURAL ONE (13:26)
[2021-08-23] MEDS: IBUPROFEN 600 MG TAB PO PRN ×2 (18:07→23:31)
[2021-08-23] MEDS: ACETAMINOPHEN TAB 325 MG TAB PO PRN (19:48)
[2021-08-24] MEDS: ACETAMINOPHEN TAB 325 MG TAB PO PRN (03:33)
--- NOTE | 2021-08-24 06:11 | P.PNOBGVD ---
Subjective - Subjective Patient reports: Reports appetite normal, Reports voiding normally, Reports pain well controlled, Reports ambulating normally : doing well Objective - Latest Vital Signs Latest vital signs: Vital Signs Temp Pulse Pulse Resp BP 08/23/21 23:32 96.6 F L 84 16 111/59 08/23/21 20:00 96.6 F L 85 16 117/59 08/23/21 16:00 98.6 F 80 16 104/58 08/23/21 13:00 98.9 F 64 16 111/72 08/23/21 12:30 65 16 107/66 08/23/21 12:00 68 16 99/55 08/23/21 11:45 73 16 104/60 08/23/21 11:30 66 16 105/56 08/23/21 11:15 75 16 95/51 08/23/21 11:00 97.3 F L 68 16 106/63 08/23/21 06:14 96.9 F L 102 H 16 122/70 Intake and Output 08/23/21 08/23/21 08/24/21 14:59 22:59 06:59 Output Total 100 Balance -100 Output: Estimated Blood Loss 100 Other: # Voids 1 1 2 - Exam Lungs: bilateral: normal Chest: Normal S1, Normal S2 Extremities: Present: normal Abdomen: Present: normal appearance, soft Uterus: Present: normal, firm - Labs Labs: Abnormal Lab Results - Last 24 Hours (Table) 08/23/21 Range/Units 06:25 Hgb 10.9 L (11.4-16.0) gm/dL Assessment and Plan Assessment: day #1. Patient is resting without complaints and wishes to go home. Vital signs are stable she's afebrile. Uterus is firm nontender and she is cagle ving normal lochia. My impression this is a normal course. Plan is to continue routine care and discharge home later today. (1) Postmaturity , 40-42 weeks gestation Current Visit: Yes Status: Acute Code(s): O48.0 - POST-TERM SNOMED Code(s): 13090319974029 (2) Elective induction of labor planned Current Visit: Yes Status: Acute Code(s): [id number] - SNOMED Code(s): 145316023
--- NOTE | 2021-08-24 06:15 | P.DS ---
Providers Date of admission: 08/23/21 06:04 Expected date of discharge: 08/24/21 Attending physician: Manuel Chapin Primary care physician: Stated None - Discharge Diagnosis(es) (1) Postmaturity , 40-42 weeks gestation Current Visit: Yes Status: Acute (2) Elective induction of labor planned Current Visit: Yes Status: Acute Hospital Course: Please see dictated H&P for intimate details of this patient's admission. Brief summary this is a pleasant 25-year-old 4 para 3 female 40-5/7 weeks gestation admitted to labor and delivery for postdates induction of labor. Patient is admitted undergoes uncomplicated induction of labor for vaginal delivery viable male . Please see dictated delivery note. day #1 patient without complaints wishes to go home. Patient's felt be stable for discharge home follow up with me in 6 weeks. Procedures: Induction of labor and normal vaginal delivery Patient Condition at Discharge: Good Plan - Discharge Summary New Discharge Prescriptions: New Ibuprofen [Motrin] 600 mg PO Q6HR PRN #30 tab PRN Reason: Pain Discharge Medication List Ibuprofen [Motrin] 600 mg PO Q6HR PRN #30 tab 08/24/21 [Rx] Follow up Appointment(s)/Referral(s): Manuel Chapin MD [STAFF PHYSICIAN] - 10/02/21 2:45 pm Patient Instructions/Handouts: Vaginal Delivery (DC) Activity/Diet/Wound Care/Special Instructions: No intercourse or anything per vagina for 6 weeks. Please call if any fever, chills, excessive vaginal bleeding, and/or abdominal pain. Discharge Disposition: HOME SELF-CARE
[2021-08-24 08:18] VITALS: BP 130/72; PULSE 68; TEMP 98
[2021-08-24] MEDS: IBUPROFEN 600 MG TAB PO PRN (12:21)
== END 2021-08-24 12:30 | disposition home or self-care (01) | DRG 807 ==
LOC: 4FBP 06:04
PROVIDERS: ADMIT Obstetrics & Gynecology; ATTEND Obstetrics & Gynecology
PROC: 10E0XZZ Delivery of Products of Conception, External Approach (ICD-10-PCS; principal; 2021-08-23)
PROC: 0HQ9XZZ Repair Perineum Skin, External Approach (ICD-10-PCS; 2021-08-23)
PROC: 3E033VJ Introduction of Other Hormone into Peripheral Vein, Percutaneous Approach (ICD-10-PCS; 2021-08-23)
DX: O48.0 Post-term pregnancy (principal); Z37.0 Single live birth; O70.0 First degree perineal laceration during delivery; O99.344 Other mental disorders complicating childbirth; F32.9 Major depressive disorder, single episode, unspecified; F41.9 Anxiety disorder, unspecified; Z3A.40 40 weeks gestation of pregnancy; Z80.1 Family history of malignant neoplasm of trachea, bronchus and lung
CPT/HCPCS: 85025; 86850; 86900; 86901

== ENCOUNTER → 2023-03-15 | Outpatient (CLI) | payer OTHER ==
--- NOTE | 2023-03-15 14:58 | US ---
EXAMINATION TYPE: Transabdominal DATE OF EXAM: 03/15/2023 2:40 PM COMPARISON: NONE CLINICAL INDICATION: Female, 27 years old with history of Z36.89 ENCOUNTER FOR OTHER SPECIFIED ANTENA GARY SCREENING; Confirm dates EXAM PERFORMED: Transabdominal (TA) EXAM MEASUREMENTS: GESTATIONAL AGE / DATING Physician Established: (8 weeks/3 days) EDC: 10/22/2023 Dates by LMP: (8 weeks/3 days) EDC: 10/22/2023 Dates by First Scan: No previous this is first scan Dates by Current Scan for: (9 weeks/0 days) EDC: 10/18/2023 MATERNAL ANATOMY Uterus: 10.0 x 6.9 x 8.9 cm Right Ovary: 2.6 x 1.9 x 2.5 cm Left Ovary: 2.3 x 1.5 x 1.7 cm Post CDS / Adnexa: wnl Presence of free fluid: No Presence of corpus luteal cyst: Right Ovary= 1.7 x 1.2 x 1.6 cm Presence of subchorionic bleed: No GESTATION / SURVEY CRL: 2.3 cm (9 weeks/0 days) MSD: wnl Yolk Sac (normal less than 6mm): 3mm Heart Rate: 165 bpm Rhythm: Normal IUP: Viable IUP Single, viable IUP/ No abnormality visualized at this time IMPRESSION: 1. Single intrauterine gestation estimated at 9 weeks 0 days gestation based on the current crown rum p length. Cardiac activity measures 165 bpm. 2. Right ovarian cyst.
== END | disposition home or self-care (01) ==
LOC: RADUSWWP 14:20
PROVIDERS: ATTEND Obstetrics & Gynecology
DX: Z36.89 Encounter for other specified antenatal screening (principal); O34.81 Maternal care for other abnormalities of pelvic organs, first trimester; Z3A.09 9 weeks gestation of pregnancy
CPT/HCPCS: 76801

== ENCOUNTER 2023-10-21 06:15 | Inpatient (IN) | payer OTHER ==
[2023-10-21] MEDS: LACTATED RINGERS 1,000 ML IV SCH ×2 (06:26→21:02)
[2023-10-21] MEDS ORDERED: TRANEXAMIC 1,000 MG/100ML-NACL 1,000 MG in EMPTY BAG 1 BAG IV PRN (06:33)
[2023-10-21] MEDS ORDERED: CARBOPROST TROMETHAMINE 250 MCG/ML 1 ML AMP IM PRN (06:33)
[2023-10-21] MEDS ORDERED: LIDOCAINE 0.5% (PF) 5 MG/ML (50 ML SDV) SQ PRN (06:33)
[2023-10-21] MEDS ORDERED: OXYTOCIN 10 UNIT/ML 1 ML VIAL IM PRN (06:33)
[2023-10-21] MEDS ORDERED: miSOPROStoL 200 MCG TAB PO PRN (06:33)
[2023-10-21] MEDS ORDERED: METHYLERGONOVINE 0.2 MG/ML 1 ML AMP IM PRN (06:33)
[2023-10-21 06:44] LABS: Basophils % (A) 1 %; Eosinophils # (A) 0.1 k/uL (0-0.7); Eosinophils % (A) 1 %; HCT 31.7 % (34.0-46.0); HGB 10.4 gm/dL (11.4-16.0); Lymphocytes # (A) 2.7 k/uL (1.0-4.8); Lymphocytes % (A) 33 %; MCHC 32.9 g/dL (31.0-37.0); Mean Platelet Volume 9.1; Microcytosis Slight; Monocytes # (A) 0.4 k/uL (0-1.0); Monocytes % (A) 4 %; Neutrophils # (A) 4.9 k/uL (1.3-7.7); Neutrophils % (A) 60 %; Platelet Count 234 k/uL (150-450); RBC 4.17 m/uL (3.80-5.40); RDW 15.6 % (11.5-15.5); WBC 8.3 k/uL (3.8-10.6)
[2023-10-21] MEDS ORDERED: OXYTOCIN 30 UNITS/500 ML NS 30 UNIT in SALINE 1 500ML.BAG IV SCH ×2 (06:45→07:15)
[2023-10-21] MEDS ORDERED: diphenhydrAMINE 50 MG CAP PO PRN ×2 (07:05→07:17)
[2023-10-21] MEDS ORDERED: BENZOCAINE/MENTHOL SPRAY 1 GM/SPRAY AEROSOL TOPICAL PRN ×2 (07:05→07:17)
[2023-10-21] MEDS ORDERED: diphenhydrAMINE 50 MG/ML 1 ML VIAL IVP PRN ×4 (07:05→07:17)
[2023-10-21] MEDS ORDERED: ZOLPIDEM 5 MG TAB PO PRN ×2 (07:05→07:17)
[2023-10-21] MEDS ORDERED: SIMETHICONE 80 MG CHEWABLE PO PRN ×2 (07:05→07:17)
[2023-10-21] MEDS ORDERED: LANOLIN CREAM 5 GM TUBE TOPICAL PRN ×2 (07:05→07:17)
[2023-10-21] MEDS ORDERED: diphenhydrAMINE 25 MG CAP PO PRN ×2 (07:05→07:17)
[2023-10-21] MEDS ORDERED: HYDROCORTISONE 2.5% RECTAL CREAM 30 GM TUBE RECTAL PRN ×2 (07:05→07:17)
--- NOTE | 2023-10-21 07:11 | P.HPOB ---
History of Present Illness H&P Date: 10/21/23 Chief Complaint: labor, normal vaginal delivery 27 year old presented to ER at 39 weeks 6 days actively delivering her baby boy. She came to triage earlier in the night was 2 cm dilated, 50% effaced, -3 station and did not make cervical change after an hour of being monitored. She is only domenic every 3-10 minutes and getting more comfortable. She was comfortable going home but then returned actively delivering. She delivered in the emergency room and then the ER physician delivered the placenta seen thereafter. Baby was brought to [facility] place and assessed in the nursery. Patient was taken to [facility] suite, IV started and she was given Pitocin. Review of Systems All systems: negative Constitutional: Denies chills, Denies fever Eyes: denies blurred vision, denies pain Ears, nose, mouth and throat: Denies headache, Denies sore throat Cardiovascular: Denies chest pain, Denies shortness of breath Respiratory: Denies cough Gastrointestinal: Denies abdominal pain, Denies diarrhea, Denies nausea, Denies vomiting Genitourinary: Denies dysuria, Denies hematuria Musculoskeletal: Denies myalgias Integumentary: Denies pruritus, Denies rash Neurological: Denies numbness, Denies weakness Psychiatric: Denies anxiety, Denies depression Endocrine: Denies fatigue, Denies weight change Past Medical History Past Medical History: No Reported History History of Any Multi-Drug Resistant Organisms: MRSA Date of last positivie culture/infection: right armpit 2013 MDRO Source:: right side arm pit and right hip Past Surgical History: No Surgical Hx Reported Additional Past Surgical History / Comment(s): Cyst removed from neck 2019 Past Anesthesia/Blood Transfusion Reactions: No Reported Reaction Past Psychological History: Anxiety, Depression Smoking Status: Never smoker Past Alcohol Use History: None Reported Past Drug Use History: None Reported - Past Family History Mother Family Medical History: No Reported History Father Family Medical History: Cancer Additional Family Medical History / Comment(s): Lung cancer Medications and Allergies Home Medications Medication Instructions Recorded Confirmed Type Calcium Carbonate [Tums] 500 mg PO TID 10/21/23 10/21/23 History Allergies Allergy/AdvReac Type Severity Reaction Status Date / Time No Known Allergies Allergy Verified 10/21/23 06:33 Exam Osteopathic Statement: *. No significant issues noted on an osteopathic structural exam other than those noted in the History and Physical/Consult. Vital Signs Temp Pulse Resp BP Pulse Ox 10/21/23 06:32 96.3 F L 90 16 124/77 100 Intake and Output 10/20/23 10/21/23 10/21/23 22:59 06:59 14:59 Other: Weight 82.1 kg Presented to the room and examined the patient who was having some pretty brisk lochia. Massage her fundus and evacuated some clots from the vagina and cervix. Her bleeding did slow. She had a first-degree midline laceration repaired with 3-0 Vicryl. Results Result Diagrams: 10/21/23 06:36 Abnormal Lab Results - Last 24 Hours (Table) 10/21/23 Range/Units 06:36 Hgb 10.4 L (11.4-16.0) gm/dL Hct 31.7 L (34.0-46.0) % MCV 76.0 L (80.0-100.0) fL RDW 15.6 H (11.5-15.5) % Assessment and Plan (1) Normal vaginal delivery Current Visit: Yes Status: Acute Code(s): O80 - ENCOUNTER FOR FULL-TERM UNCOMPLICATED DELIVERY SNOMED Code(s): 47168233 Plan: 1. Continue post
--- NOTE | 2023-10-21 07:12 | P.PROBDLV ---
Vaginal Delivery Note - . Vaginal Delivery Note: 27 year old presented to ER at 39 weeks 6 days actively delivering her baby boy. She came to triage earlier in the night was 2 cm dilated, 50% effaced, -3 station and did not make cervical change after an hour of being monitored. She is only domenic every 3-10 minutes and getting more comfortable. She was comfortable going home but then returned actively delivering. She delivered in the emergency room and then the ER physician delivered the placenta seen thereafter. Baby was brought to family [facility] and assessed in the nursery. Patient was taken to family suite, IV started and she was given Pitocin. Patient was then examined in the family suite where she was found to have some clots in the vagina that were evacuated and her fundus was firm. First- degree midline laceration was repaired with 3-0 Vicryl. Mother and baby in sta ble condition.
[2023-10-21] MEDS ORDERED: SENNOSIDES-DOCUSATE SODIUM 1 EACH TAB PO SCH (08:00)
[2023-10-21] MEDS: IBUPROFEN 600 MG TAB PO PRN ×3 (10:18→23:35)
[2023-10-21] MEDS: SENNOSIDES-DOCUSATE SODIUM 1 EACH TAB PO SCH ×2 (10:23→20:01)
[2023-10-21] MEDS: ACETAMINOPHEN TAB 325 MG TAB PO PRN (20:01)
[2023-10-21 21:07] VITALS: RESP 16
--- NOTE | 2023-10-22 06:37 | P.PNOBGVD ---
Subjective - Subjective Patient reports: Reports appetite normal, Reports voiding normally, Reports pain well controlled, Reports ambulating normally : doing well Objective - Latest Vital Signs Latest vital signs: Vital Signs Temp Pulse Resp BP Pulse Ox 10/21/23 23:49 97.4 F L 81 16 103/61 98 10/21/23 20:00 97.4 F L 82 16 103/65 98 10/21/23 16:00 98.5 F 101 H 14 106/70 10/21/23 12:00 98.2 F 69 16 100/50 10/21/23 08:30 98.9 F 83 14 116/74 10/21/23 08:00 99 14 109/77 10/21/23 07:30 87 14 130/60 10/21/23 07:15 84 16 125/64 99 10/21/23 07:00 81 16 130/71 99 10/21/23 06:45 97.9 F 85 16 126/70 99 Intake and Output 10/21/23 10/21/23 10/22/23 14:59 22:59 06:59 Intake Total 189.267 Output Total 516 Balance -326.733 Intake: Intake, IV Titration 189.267 Amount Oxytocin 30 Units/500 ml 189.267 Ns 30 unit In Saline 1 500ml.bag @ Per Protocol IV .Q0M [facility] Rx#:[id number] Output: Output, Quantitative 516 Blood Loss Other: # Voids 2 2 2 - Exam Lungs: bilateral: normal Chest: Normal S1, Normal S2 Extremities: Present: normal Abdomen: Present: normal appearance, soft Uterus: Present: normal, firm - Labs Labs: Abnormal Lab Results - Last 24 Hours (Table) 10/21/23 Range/Units 06:36 Hgb 10.4 L (11.4-16.0) gm/dL Hct 31.7 L (34.0-46.0) % MCV 76.0 L (80.0-100.0) fL RDW 15.6 H (11.5-15.5) % Assessment and Plan Assessment: Post day #1. Patient is resting without complaints. Vital signs are stable she's afebrile. Uterus is firm nontender she's having normal lochia. Repeat CBC is pending. Patient would like to go home today is loss her baby is able to go. Plan is to continue routine care discharge home today if the baby is discharged otherwise discharge home tomorrow. (1) Normal vaginal delivery Current Visit: Yes Status: Acute Code(s): O80 - ENCOUNTER FOR FULL-TERM UNCOMPLICATED DELIVERY SNOMED Code(s): 38292598 (2) Group B streptococcal carriage complicating Current Visit: No Status: Acute Code(s): O99.820 - STREPTOCOCCUS B CARRIER STATE COMPLICATING SNOMED Code(s): 689629473780658
--- NOTE | 2023-10-22 06:41 | P.DS ---
Providers Date of admission: 10/21/23 06:15 Expected date of discharge: 10/22/23 Attending physician: Manuel Chapin Primary care physician: Stated None - Discharge Diagnosis(es) (1) Normal vaginal delivery Current Visit: Yes Status: Acute (2) Group B streptococcal carriage complicating Current Visit: No Status: Acute Hospital Course: Please see dictated H&P and delivery summary per Dr. Angeles. Brief summary this is a pleasant 27-year-old 5 para 4 female 39-6/7 weeks gestation who presented to the hospital with precipitous delivery of a viable male infant in the car outside of the emergency department. Patient was brought to labor and delivery where examination and repair was done per Dr. Angeles. day #1 patient was feeling well wishes to go home. Patient's felt to be stable for discharge home follow up with me in 6 weeks. Procedures: Normal vaginal delivery Patient Condition at Discharge: Good Plan - Discharge Summary New Discharge Prescriptions: New Ibuprofen [Motrin] 600 mg PO Q6HR PRN #30 tab PRN Reason: Mild Pain (Scale 1 To 3) No Action Calcium Carbonate [Tums] 500 mg PO TID Discharge Medication List Calcium Carbonate [Tums] 500 mg PO TID 10/21/23 [History] Ibuprofen [Motrin] 600 mg PO Q6HR PRN #30 tab 10/22/23 [Rx] Follow up Appointment(s)/Referral(s): Manuel Chapin MD [STAFF PHYSICIAN] - 6 Weeks Patient Instructions/Handouts: Vaginal Delivery (DC) Activity/Diet/Wound Care/Special Instructions: No intercourse or anything per vagina for 6 weeks. Please call if any fever, chills, excessive vaginal bleeding, and/or abdominal pain. Discharge Disposition: HOME SELF-CARE
[2023-10-22 07:14] LABS: Basophils % (A) 0 %; Eosinophils # (A) 0.2 k/uL (0-0.7); Eosinophils % (A) 2 %; Hypochromasia Slight; Lymphocytes # (A) 2.4 k/uL (1.0-4.8); Lymphocytes % (A) 28 %; MCH 26.2 pg (25.0-35.0); MCHC 34.1 g/dL (31.0-37.0); MCV 76.9 fL (80.0-100.0); Mean Platelet Volume 8.9; Microcytosis Slight; Monocytes # (A) 0.3 k/uL (0-1.0); Monocytes % (A) 3 %; Neutrophils # (A) 5.4 k/uL (1.3-7.7); Neutrophils % (A) 64 %; Platelet Count 181 k/uL (150-450); RBC 3.24 m/uL (3.80-5.40); RDW 15.8 % (11.5-15.5)
[2023-10-22 07:19] LABS: WBC 8.4 k/uL (3.8-10.6)
[2023-10-22 07:21] LABS: HGB 8.5 gm/dL (11.4-16.0)
[2023-10-22] MEDS: SENNOSIDES-DOCUSATE SODIUM 1 EACH TAB PO SCH ×2 (08:13→21:04)
[2023-10-22] MEDS: ACETAMINOPHEN TAB 325 MG TAB PO PRN ×3 (08:13→23:45)
[2023-10-22] MEDS: IBUPROFEN 600 MG TAB PO PRN ×2 (11:36→21:04)
[2023-10-23] MEDS: IBUPROFEN 600 MG TAB PO PRN (03:44)
--- NOTE | 2023-10-23 06:26 | P.PNOBGVD ---
Subjective - Subjective Patient reports: Reports appetite normal, Reports voiding normally, Reports pain well controlled, Reports ambulating normally : doing well Objective - Latest Vital Signs Latest vital signs: Vital Signs Temp Pulse Resp BP Pulse Ox 10/22/23 23:55 98.6 F 79 16 111/74 99 10/22/23 16:00 98.2 F 92 16 119/61 10/22/23 12:00 98 F 81 16 112/72 10/22/23 08:00 97.6 F 79 16 111/69 Intake and Output 10/22/23 10/22/23 10/23/23 14:59 22:59 06:59 Other: # Voids 1 - Exam Lungs: bilateral: normal Chest: Normal S1, Normal S2 Extremities: Present: normal Abdomen: Present: normal appearance, soft Uterus: Present: normal, firm - Labs Labs: Abnormal Lab Results - Last 24 Hours (Table) 10/22/23 Range/Units 06:30 RBC 3.24 L (3.80-5.40) m/uL Hgb 8.5 L D (11.4-16.0) gm/dL Hct 25.0 L (34.0-46.0) % MCV 76.9 L (80.0-100.0) fL RDW 15.8 H (11.5-15.5) % Assessment and Plan Assessment: Post day #2. Patient is resting without new complaints. Vital signs are stable she is afebrile. CBC showed a hemoglobin of 8.5 which is appropriate drop from admission hemoglobin. Patient will continue to take iron therapy at home. Patient stated last night because her baby needed to be watched for one more day. Patient's felt to be stable for discharge home follow up with me in 6 weeks. (1) Normal vaginal delivery Current Visit: Yes Status: Acute Code(s): O80 - ENCOUNTER FOR FULL-TERM UNCOMPLICATED DELIVERY SNOMED Code(s): 26191910 (2) Group B streptococcal carriage complicating Current Visit: No Status: Acute Code(s): O99.820 - STREPTOCOCCUS B CARRIER STATE COMPLICATING SNOMED Code(s): 221909416532028
[2023-10-23] MEDS: ACETAMINOPHEN TAB 325 MG TAB PO PRN (06:34)
[2023-10-23] MEDS: SENNOSIDES-DOCUSATE SODIUM 1 EACH TAB PO SCH (07:49)
[2023-10-23 08:05] VITALS: BP 111/75; PULSE 62; TEMP 97.5
== END 2023-10-23 11:45 | disposition home or self-care (01) | DRG 560 ==
LOC: 4FBP 06:15
PROVIDERS: ADMIT Obstetrics & Gynecology; ATTEND Obstetrics & Gynecology
PROC: 10E0XZZ Delivery of Products of Conception, External Approach (ICD-10-PCS; principal; 2023-10-21)
PROC: 0HQ9XZZ Repair Perineum Skin, External Approach (ICD-10-PCS; 2023-10-21)
DX: O62.3 Precipitate labor (principal); O99.824 Streptococcus B carrier state complicating childbirth; F32.A Depression, unspecified; F41.9 Anxiety disorder, unspecified; O70.0 First degree perineal laceration during delivery; O99.344 Other mental disorders complicating childbirth; Z37.0 Single live birth; Z3A.39 39 weeks gestation of pregnancy
CPT/HCPCS: 85025; 86850; 86900; 86901

== ENCOUNTER 2023-10-21 06:36 | Emergency (ER) | payer OTHER ==
--- NOTE | 2023-10-21 06:47 | ED ---
Female Urogenital HPI - General Stated complaint: baby delivery Time Seen by Provider: 10/21/23 06:47 - History of Present Illness Initial comments: 27-year-old female arrived to the emergency department entrance in active labor. Patient reported this is her fifth child, she is group B strep positive she has had care throughout the with Dr. Chapin and is full-term. - Related Data Home Medications Medication Instructions Recorded Confirmed Calcium Carbonate [Tums] 500 mg PO TID 10/21/23 10/21/23 Allergies Allergy/AdvReac Type Severity Reaction Status Date / Time No Known Allergies Allergy Verified 10/21/23 06:33 Review of Systems ROS Statement: Those systems with pertinent positive or pertinent negative responses have been documented in the HPI. ROS Other: All systems not noted in ROS Statement are negative. Past Medical History Past Medical History: No Reported History History of Any Multi-Drug Resistant Organisms: MRSA Date of last positivie culture/infection: right armpit 2013 MDRO Source:: right side arm pit and right hip Past Surgical History: No Surgical Hx Reported Additional Past Surgical History / Comment(s): Cyst removed from neck 2019 Past Anesthesia/Blood Transfusion Reactions: No Reported Reaction Smoking Status: Never smoker - Past Family History Mother Family Medical History: No Reported History Father Family Medical History: Cancer Additional Family Medical History / Comment(s): Lung cancer General Exam Limitations: no limitations General appearance: alert, other (In active labor) Head exam: Present: atraumatic, normocephalic Respiratory exam: Absent: respiratory distress GI/Abdominal exam: Present: other (Gravid uterus) By manual exam: Present: uterine enlargement Expanded External exam: Present: , bleeding Amniotic fluid: Present: bloody. Absent: meconium Extremities exam: Present: normal inspection Neurological exam: Present: alert, oriented X3 Psychiatric exam: Present: normal affect, normal mood Skin exam: Present: warm, dry. Absent: cyanosis, diaphoretic Procedures - Vaginal Delivery Indication: precipitous vaginal deliv Amniotic Fluid: clear Nuchal Cord: no - HR at 1 Minute: >100 (2) - RR at 1 Minute: strong cry (2) - Color at 1 Minute: [place] with blue extremities (1) - Muscle Tone at 1 Minute: active motion (2) - Reflex Irritability at 1 Minute: cough/sneeze (2) Score: 9 Cord Blood Obtained: No Cord Clamped: Yes Placenta Delivered: yes Patient Tolerated Procedure: well Complications: none Care Transferred To: Labor and delivery Medical Decision Making - Medical Decision Making I was called to the entrance of the emergency department for a woman in active labor, upon my arrival a well-appearing full-term male infant had been delivered, baby was wrapped in warm blanket and held at the level of the vagina, cord was noted to be pulsating. Baby's delivery was estimated to be at 6 AM. Upon my initial evaluation which I estimate was within 2 minutes of baby had of 9. By 6:08 the mother had delivered a intact placenta. Baby and placenta were then removed from the outdoor environment in to the hospital and placed in an Isolette. Mom was able to stand and be assisted to a hospital bed. Mom and baby were then wheeled into the empty observation unit adjacent to the emergency department, decision was made to avoid the emergency department due t o risk of exposure to viral infections. Baby was reassessed, was 10 Patient was reassessed, is awake alert oriented, no significant bleeding is noted. Uterus is tender and enlarged appropriately. Patient and baby are stable for transfer to labor and delivery unit. Disposition Clinical Impression: Normal labor Disposition: HOME SELF-CARE Condition: Stable Is patient prescribed a controlled substance at d/c from ED?: No Referrals: None,Stated [Primary Care Provider] - 1-2 days
== END 2023-10-21 06:51 | disposition home or self-care (01) ==
LOC: EC 06:36
DX: O80 Encounter for full-term uncomplicated delivery (principal)
CPT/HCPCS: 99284